=== PATIENT | female | born 1985 ===

== ENCOUNTER 2021-02-13 21:32 | Emergency (ER) | payer SELFPAY ==
[~2021-02-13] VITALS: Ht 157.5 cm; Wt 63.6 kg
[2021-02-13 21:35] VITALS: TEMP 98.3
[2021-02-13 22:36] VITALS: BP 124/68; PULSE 73
== END 2021-02-13 22:36 | disposition home or self-care (01) ==
LOC: COL.ER 21:32
DX: S61.011A Laceration without foreign body of right thumb without damage to nail, initial encounter (principal); W25.XXXA Contact with sharp glass, initial encounter